=== PATIENT | female | born 1980 | race Caucasian/White ===

== ENCOUNTER 2020-04-05 14:23 | Outpatient (CLI) | payer BC, SELFPAY ==
--- NOTE | ~2020-04-05 | MM_ITS ---
EXAMINATION: MM scrn jonathan implant BI w patricia HISTORY: Screening mammogram TECHNIQUE: Craniocaudal and mediolateral oblique 3-D tomosynthesis images with implant displacement a nd synthetic 2-D images were generated. Craniocaudal and mediolateral oblique views of the breasts wi thout implant displacement were obtained using full field digital mammography. CAD analysis was submi tted and interpreted. COMPARISON: 03/29/2019, 10/07/2018, 04/05/2018 bilateral diagnostic digital mammogram examinations 03/29/2019, 10/07/2018 limited right breast ultrasound examinations 04/05/2018 bilateral Limited breast ultrasound examination. BREAST PARENCHYMAL COMPOSITION: There are scattered areas of fibroglandular density. FINDINGS: Status post bilateral augmentation mammoplasty. Occasional bilateral benign calcifications. There is no evidence of suspicious mass, calcification, or architectural distortion to suggest malig leora in either breast. There has been no suspicious interval change. IMPRESSION: 1. No mammographic evidence of malignancy. 2. Recommend routine screening mammography in one year. BI-RADS Category 2: Benign finding(s). Reviewed, dictated and finalized at location A.
== END 2020-04-05 14:24 | disposition home or self-care (01) ==
LOC: ANHIMG 14:28
PROVIDERS: PCP Family Medicine; Visit Provider Obstetrics & Gynecology
DX: Z12.31 Encounter for screening mammogram for malignant neoplasm of breast (principal)
CPT/HCPCS: 77063; 77067

== ENCOUNTER 2020-08-07 00:48 | Outpatient (CLI) | payer BC, SELFPAY ==
[2020-08-07 18:38] LABS: SARS-CoV-2 RNA PCR Negative
== END 2020-08-07 00:49 | disposition home or self-care (01) ==
LOC: ANHCOVIDDT 00:48
PROVIDERS: PCP Family Medicine; Visit Provider Obstetrics & Gynecology
DX: Z01.812 Encounter for preprocedural laboratory examination (principal); Z20.828 Contact with and (suspected) exposure to other viral communicable diseases
CPT/HCPCS: 87635; C9803; U0003

== ENCOUNTER 2020-08-07 06:59 | Outpatient (CLI) | payer BC, SELFPAY | END 2020-08-07 07:00 | disposition home or self-care (01) | PROVIDERS: PCP Family Medicine; Visit Provider Obstetrics & Gynecology | DX: R10.2 Pelvic and perineal pain (principal) | CPT/HCPCS: 36415; 86850; 86900; 86901 ==

== ENCOUNTER 2020-08-09 01:28 | Day surgery (SDC) | payer BC, SELFPAY ==
[2020-07-31 11:47] VITALS: BMI 27.3
--- NOTE | 2020-08-07 10:08 | PM.IMHP ---
H&P: HPI History of Present Illness Date/Time: 08/07/20 10:08 Chief complaint: Pelvic Pain Narrative: Fernanda Almeida is a 40 year old female 3 para 3 status post hysterectomy is admitted for diagnostic laparoscopy. She has had pain and discomfort. She has an ultrasound which shows a right adnexal structure of the small cystic component and a left ovary this larger with cystic structure and as well. She is offered diagnostic laparoscopy. Risks and benefits reviewed in full Review of Systems Review of Systems: All systems reviewed & are unremarkable except as noted in HPI and below PMFSH Social History Social History Smoking status: Never smoker Alcohol intake: current Drinks per week: 3 Spiritual care concerns: No Meds Home Medications and Allergies Home Medications Medication Instructions Recorded Confirmed Type clonazepam 0.5 mg PO HS 07/31/20 07/31/20 History pseudoephedrine HCl [Sudafed] 30 mg PO HS 07/31/20 07/31/20 History Allergies Allergy/AdvReac Type Severity Reaction Status Date / Time gluten Allergy CELIAC Verified 07/31/20 11:52 DISEASE Exam Const: General: no acute distress Eyes: General: appearance normal, both eyes and all related structures Neck: Neck: supple and no JVD Thyroid: thyroid normal Resp: Effort & Inspection: normal respiratory effort Auscultation: clear to auscultation bilaterally Cardio: Rate: regular rate Rhythm: regular rhythm GI: Inspection: non-distended GI Palp: Yes Soft to palpation, No Tenderness to palpation present (GI) and No Guarding due to palpation present (GI) Auscultation: normal bowel sounds : General: Yes bladder normal to inspection External Female Exam: normal external appearance Speculum Exam - Vagina: normal appearance of the vagina Speculum Exam - Cervix: Cervix absent Bimanual exam- vagina & uterus: uterus absent Bimanual Exam- Adnexa, other: tender Skin: General skin exam: no rashes or lesions noted Extrem: General: normal to inspection and no edema Psych: Mental Status: mental status grossly normal Affect: normal affect Assessment and Plan Additional Plan impression: Pelvic pain and bilateral ovarian cyst Plan: Diagnostic laparoscopy
[2020-08-09] VITALS (8 sets, daily range): BP systolic 105–134; BP diastolic 71–84; PULSE 68–115; RESP 13–20; TEMP 36.4–36.6; O2SAT 98–100
--- NOTE | 2020-08-09 06:43 | WPDHPUPDATE1 ---
History and Physical Update Update Date/Time: 08/09/20 06:43 History and Physical has been reviewed, including an updated exam of the patient. There are NO changes in the patient's condition. Risks, benefits, and alternatives have been discussed and questions answered. Patient agrees to proceed with procedure.
[2020-08-09] MEDS: KETOROLAC 15 MG/ML VIAL (*BKC) IV PUSH (08:19)
[2020-08-09] MEDS: ACETAMINOPHEN 500 MG TABLET 1000 MG PO (08:19)
[2020-08-09] MEDS: LACTATED RINGERS 1,000 ML 30 ML IV CONT ×2 (08:30→10:30)
--- NOTE | 2020-08-09 08:58 | WPDANESEPPF ---
Anes - Initial Pre Proc Eval Procedure: Operation Date: 08/09/20 10:00 Proposed Procedures p Diagnostic Laparoscopy - Tommy Walker MD Date/Time: 08/09/20 08:58 Surgeon: Tommy Walker MD Pre Op Diagnosis: Pelvic Pain Patient Data Age: 40 Gender: F Height: 5 ft 7 in Weight: 80.8 kg Last Vital Signs Temp 36.4 C 08/09/20 07:55 Pulse 79 08/09/20 07:55 Resp 20 08/09/20 07:55 BP 117/77 08/09/20 07:55 Pulse Ox 100 08/09/20 07:55 Allergies Allergy/AdvReac Type Severity Reaction Status Date / Time gluten Allergy CELIAC Verified 08/09/20 08:37 DISEASE Home Medications Medication Instructions Recorded Confirmed Type clonazepam 0.5 mg PO HS 07/31/20 07/31/20 History pseudoephedrine HCl [Sudafed] 30 mg PO HS 07/31/20 07/31/20 History hydrocodone-acetaminophen 1 tablet PO Q6H PRN #30 tablet 08/09/20 Rx Patient hx anesthesia problems: none Family hx anesthesia problems: none [facility] Past Medical History Medical History (Updated 08/09/20 @ 08:58 by Tommy Venegas MD) Overweight Surgical History Surgical History (Updated 08/09/20 @ 08:59 by Tommy Venegas MD) H/O laparoscopy H/O: hysterectomy Hx of tonsillectomy Social History Social History Smoking status: Never smoker Alcohol intake: current Drinks per week: 3 Spiritual care concerns: No Anes - Eval Final PreProcedure Day of Procedure 08/09/20 08:58 Patient weight: overweight Heart: regular rate and rhythm Lungs: clear to auscultation Airway: Mallampati scale class II Neurological: alert and oriented Last oral intake: >/= 8 hours ASA classification: II Emergent: no Anesthetic plan: proceed Anesthesia type and monitoring: general ETT and standard monitoring Informed Consent: The patient's anesthetic plan and its attendant risks and benefits were discussed with the patient/family/POA. Questions were solicited and answers provided to the satisfaction of the patient/family/POA.
--- NOTE | 2020-08-09 10:19 | PM.PROC ---
Procedure Note - Detailed Date of procedure: 08/09/20 Pre-op diagnosis: Pelvic Pain Surgeon: Tommy Walker MD Postop diagnosis: Pelvic pain /left ovarian cyst /adhesions Procedure: Laparoscopy / left ovarian cyst destruction /lysis of adhesions anesthesia: General endotracheal EBL: 5cc Complications: None Findings: Absent uterus and right ovary and tube. Left ovarian cyst with benign appearance. Adhesions from the colon to the left lateral sidewall Description of procedure: Patient was prepped draped in the normal sterile fashion and placed in the dorsal lithotomy position. Under excellent general grating anesthesia weighted speculum placed in posterior fornix vagina. The sponge stick was placed in bladder drained of clear urine. The speculum was removed and gloves were changed. An infraumbilical umbilical incision made in the Veress needle passed in the abdomen. Abdomen filled with CO2 gas [id number]. The 5mm trocar was advanced in the abdomen under direct visualization assuring no injury. The patient was placed in Trendelenburg and a suprapubic incision made. The 5mm trocar was advanced under direct visualization assuring no injury. The above findings were seen in photo documentation undertaken. The pelvis actually. Relatively clean. On the left was a benign-appearing ovarian cyst in this was opened with monopolar cautery at 35 w per 2nd and drained of clear follicular fluid. Adhesions were seen from the omentum to that left lateral side wall and using sharp dissection was Endo Lucia this was brought down freeing up these heavy or adhesions. No other abnormalities were seen. Irrigation was undertaken. The lower site removed. The gas removed from the abdomen. The incisions closed with 4 Monocryl and glue. All sponge, needle, instrument counts were correct. There were no immediate complications
[2020-08-09] MEDS: oxyCODONE HCL (*CRX) 5 MG TAB IR PO (12:09)
== END 2020-08-09 12:39 | disposition home or self-care (01) ==
PROVIDERS: PCP Family Medicine; Visit Provider Obstetrics & Gynecology
PROC: (CPT 49320; principal; 2020-08-09 10:00)
DX: R10.2 Pelvic and perineal pain (principal); N73.6 Female pelvic peritoneal adhesions (postinfective); N83.202 Unspecified ovarian cyst, left side
CPT/HCPCS: 58662; A9270; J0330; J1100; J1170; J1885; J2250; J2405; J2704; J3010; J7030; J7120; Q9968

== ENCOUNTER 2021-05-20 08:00 | Outpatient (CLI) | payer BC, SELFPAY ==
--- NOTE | ~2021-05-20 | MM_ITS ---
EXAMINATION: MM scrn jonathan implant BI w patricia HISTORY: Screening mammogram TECHNIQUE: Craniocaudal and mediolateral oblique 3-D tomosynthesis images with implant displacement a nd synthetic 2-D images were generated. Craniocaudal and mediolateral oblique views of the breasts wi thout implant displacement were obtained using full field digital mammography. CAD analysis was submi tted and interpreted. COMPARISON: 04/05/2020 bilateral implant digital screening mammogram 03/29/2019 bilateral diagnostic implant mammogram and limited right breast ultrasound 10/07/2018 diagnostic right implant mammogram 04/05/2018 bilateral diagnostic mammogram and Limited bilateral breast ultrasound 04/01/2018 bilateral implant digital screening mammogram BREAST PARENCHYMAL COMPOSITION: There are scattered areas of fibroglandular density. FINDINGS: Status post bilateral augmentation mammoplasty. Stable mild fibroglandular asymmetry. Occasional benign calcifications are noted bilaterally. There is no evidence of suspicious mass, calcification, or architectural distortion to suggest malign koko in either breast. There has been no suspicious interval change. IMPRESSION: 1. No mammographic evidence of malignancy. 2. Recommend routine screening mammography in one year. BI-RADS Category 2: Benign finding(s). Reviewed, dictated and finalized at location A.
== END 2021-05-20 08:01 | disposition home or self-care (01) ==
LOC: ANHIMG 08:02
PROVIDERS: PCP Family Medicine; Visit Provider Obstetrics & Gynecology
DX: Z12.31 Encounter for screening mammogram for malignant neoplasm of breast (principal)
CPT/HCPCS: 77063; 77067

== ENCOUNTER 2022-06-22 08:19 | Outpatient (CLI) | payer OTHER, BC, SELFPAY ==
--- NOTE | ~2022-06-22 | MM_ITS ---
EXAMINATION: MM scrn jonathan implant BI w patricia HISTORY: Screening mammogram TECHNIQUE: Craniocaudal and mediolateral oblique 3-D tomosynthesis images with implant displacement a nd synthetic 2-D images were generated. Craniocaudal and mediolateral oblique views of the breasts wi thout implant displacement were obtained using full field digital mammography. CAD analysis was submi tted and interpreted. COMPARISON: 05/20/2021, 04/05/2020 BREAST PARENCHYMAL COMPOSITION: There are scattered areas of fibroglandular density. FINDINGS: There is no evidence of suspicious mass, calcification, or architectural distortion to sugg est malignancy in either breast. There has been no suspicious interval change. IMPRESSION: 1. No mammographic evidence of malignancy. 2. Recommend routine screening mammography in one year. BI-RADS Category 1: Negative Reviewed, dictated and finalized at location A.
== END 2022-06-22 08:20 | disposition home or self-care (01) ==
LOC: ANHIMG 08:20
PROVIDERS: PCP Family Medicine; Visit Provider Obstetrics & Gynecology
DX: Z12.31 Encounter for screening mammogram for malignant neoplasm of breast (principal)
CPT/HCPCS: 77063; 77067

== ENCOUNTER 2022-12-03 09:03 | Outpatient (CLI) | payer OTHER, BC, SELFPAY ==
--- NOTE | 2022-12-03 09:00 | ECG_ITS ---
Measurements Intervals [place] Rate: 71 P: 62 ID: [id number] QRS: 62 QRSD: 81 T: 56 QT: 378 QTc: 413 Interpretive Statements SINUS RHYTHM LOW QRS VOLTAGE IN PRECORDIAL LEADS [QRS DEFLECTION < 1.0 mV IN CHEST LEADS] WARNING: DATA QUALITY MAY AFFECT INTERPRETATION NO PREVIOUS ECG AVAILABLE FOR COMPARISON Electronically Signed On 12-03-2022 15:40:00 [employer] by Zahra Butcher M.D.
[2022-12-03 09:49] LABS: Hematocrit 42.1 % (37.0-47.0); Hemoglobin 14.6 g/dL (12.0-15.0)
== END 2022-12-03 09:04 | disposition home or self-care (01) ==
LOC: ANHSURGERY 09:09
PROVIDERS: Anesthesiology; PCP Family Medicine; Visit Provider Surgery Plastic and Reconstructive Surgery
DX: Z41.1 Encounter for cosmetic surgery (principal); Z01.818 Encounter for other preprocedural examination
CPT/HCPCS: 36415; 85014; 85018; 93005

== ENCOUNTER 2022-12-15 00:33 | Day surgery (SDC) | payer OTHER, BC, SELFPAY ==
[2022-12-01 15:15] VITALS: BMI 23.5
--- NOTE | 2022-12-01 15:19 | PC.NURSE ---
Addendum entered by Cecy Garcia RN 12/01/22 15:26: HIBICLENS SHOWER MORNING OF SURGERY. Original Note: Report to the Outpatient Waiting Room, entrance under the green pavilion located off [facility], at time 8:30 on date 12/15/22. Planned Procedure Time: 10:30. Time changes happen often and if your time is changed the preop area will call you the afternoon before. - You and your visitor will be asked to self-screen and do not enter if you have any COVID symptoms. - Only one visitor is requested with a max of two and NO children visitors are allowed at this time. - The patient visitor may be requested to leave or wait in car when not with patient due to distancing restrictions. - A mask is optional within the hospital at this time. Patients may have clear liquids (water, carbonated beverages, clear teas, apple juice) until 3 hours prior to surgery with a maximum of 20 ounces. - No food from midnight until time of surgery Take the following medications with a SIP of water the morning of surgery: XANAX IF NEEDED DO NOT STOP ANY OF YOUR OTHER PRESCRIPTION MEDICATIONS PRIOR TO SURGERY EXCEPT THE FOLLOWING Medications to discontinue per physician: N/A Date to take last dose: N/A Please no make-up, nail ku[place]i, hairspray, perfume, deodorant, or body powder the day of surgery. No jewelry (including any body piercings) or valuables the day of surgery, leave them at home. Please take a shower or bath the night before, or the morning of, surgery with an antibacterial soap. Wear comfortable, loose fitting clothing. - Jewelry must be removed prior to entering the operating room. Rings and piercings that are not removed may be cut off. - The hospital will not accept responsibility for valuables. - Please leave all valuables, including medications, at home the day of surgery. If you are going home after surgery, a licensed school bus driver/custodian must drive you home. - NO public transportation without another adult if you receive anesthesia. - We recommend that an adult stay with you for 24 hours following discharge. - We also recommend that you do not drive, make important decision, drink alcoholic beverages, or take any drugs that were not prescribed by your health care provider for at least 24 hours after your discharge time. Follow any additional instructions given to you from your surgeon. If you or anyone in your household have experienced Covid symptoms in the past week, please notify your surgeon or the nurse liaison at the phone number below for possible testing. Telephone instructions given to JANIYA - LETY SANCHEZ and asked if any additional questions and then verbalized understanding. Patient advised to call surgeon office or pre surgery nurse liaison [phone] if any additional questions.
[2022-12-15] VITALS (11 sets, daily range): BP systolic 91–123; BP diastolic 60–88; PULSE 77–103; RESP 12–18; TEMP 36.4–37.1; O2SAT 97–100; BMI 23.1
[2022-12-15] MEDS: LACTATED RINGERS 1,000 ML 30 ML IV CONT ×2 (09:05→14:03)
[2022-12-15 09:09] LABS: Urine Cotinine NEGATIVE
[2022-12-15] MEDS: ACETAMINOPHEN 500 MG TABLET 1000 MG PO (09:09)
--- NOTE | 2022-12-15 09:18 | WPDANESEPPF ---
Anes - Initial Pre Proc Eval Procedure: Operation Date: 12/15/22 10:30 Proposed Procedures p Abdominoplasty with Liposuction - Jerry Luo MD s Open Umbilical Hernia Repair - Heber Cohen DO Date/Time: 12/15/22 09:18 Surgeon: Jerry Luo MD Pre Op Diagnosis: Skin Laxity, Umbilical Hernia Patient Data Age: 42 Gender: F Height: 1.7 m Weight: 68.1 kg Allergies Allergy/AdvReac Type Severity Reaction Status Date / Time gluten Allergy CELIAC Verified 12/15/22 08:55 DISEASE Home Medications Medication Instructions Recorded Confirmed Type spironolactone 50 mg tablet 50 mg PO DAILY 09/03/22 12/01/22 History alprazolam 0.5 mg tablet 0.5 mg PO BID PRN Anxiety 12/01/22 12/01/22 History linaclotide 72 mcg capsule 72 mcg PO DAILY 12/01/22 12/01/22 History (Linzess) pseudoephedrine HCl 30 mg tablet 30 mg PO HS PRN Congestion 12/01/22 12/01/22 History (Sudafed) Laboratory Tests 12/15/22 08:53 Cotinine Negative Patient hx anesthesia problems: none Family hx anesthesia problems: none Results Review: All pre-operative results and documents have been reviewed as part of the pre-operative evaluation. [facility] Past Medical History Medical History (Updated 12/15/22 @ 09:18 by Tommy Venegas MD) Celiac disease Surgical History Surgical History H/O laparoscopy H/O: hysterectomy Hx of tonsillectomy S/P breast augmentation S/P Family History Family History Father Lung cancer Other Cerebrovascular accident Cancer Social History Social History Smoking status: Never smoker Alcohol intake: current Drinks per week: 3 Alcohol use details: 2/MONTH Substance use: never Substance use type: does not use Living arrangements: with family Spiritual care concerns: No Anes - Eval Final PreProcedure Day of Procedure 12/15/22 09:18 Patient weight: normal Heart: regular rate and rhythm Lungs: clear to auscultation Airway: Mallampati scale class II Neurological: alert and oriented Last oral intake: >/= 8 hours ASA classification: II Emergent: no Anesthetic plan: proceed Anesthesia type and monitoring: general ETT and standard monitoring Results Review: All pre-operative results and documents have been reviewed as part of the pre-operative evaluation. Informed Consent: The patient's anesthetic plan and its attendant risks and benefits were discussed with the patient/family/POA. Questions were solicited and answers provided to the satisfaction of the patient/family/POA.
[2022-12-15] MEDS: SCOPOLAMINE 1.5 MG PATCH TRANSDERM (09:34)
[2022-12-15] MEDS: KETOROLAC 15 MG/ML VIAL (*BKC) IV PUSH ×2 (09:39→15:45)
--- NOTE | 2022-12-15 09:40 | WPDHPUPDATE1 ---
History and Physical Update Update Date/Time: 12/15/22 09:40 History and Physical has been reviewed, including an updated exam of the patient. There are NO changes in the patient's condition. Risks, benefits, and alternatives have been discussed and questions answered. Patient agrees to proceed with procedure.
--- NOTE | 2022-12-15 09:59 | W.PM.PROC2 ---
Procedure Note - Detailed Date of Procedure 12/15/22 Pre-op Diagnosis Skin Laxity, Umbilical Hernia Post-op Diagnosis Same Procedure Performed Progressive tension abdominoplasty with suction lipectomy Surgeon Jerry Luo MD Anesthesia General Findings Tissue removed: 905 grams Lipoaspirate: 850 cc Description of Procedure They are here today for abdominoplasty. Previously and again today the risks, benefits, alternatives were discussed in extensive detail. I wanted them to be very realistic about the risks involved as well as expectations. We discussed aftercare and what to monitor for. I was very upfront about the risks of wound breakdown leading to loss of skin, open wounds, and need for additional procedures with permanent abdominal deformity. We discussed DVT/PE risks and management. Made sure answered all of their questions to their satisfaction today and consent was obtained. They were marked in the preoperative holding area with their verification. The patient was taken to the operating room placed supine on the operating table. Anesthesia was provided by anesthesiology. A Harvey catheter was started. They were prepped and draped in a standard sterile fashion. A surgical time-out was taken. I placed the patient in a flexed position to verify the upper and lower markings would reach. I then placed supine. A thorough abdominal examination was completed. Stab incisions were made and tumescent solution infiltrated. Once adequate time was allowed for hemostasis a 5mm basket and 3mm gege cannula were utilized to complete suction lipectomy based on S.A.F.E. technique in multiple planes and passes. There were turned to bilateral lateral decubitus position with care taken to protect them for injury during this process. Suction lipectomy continued to result based on pre-operative planning, intra-operative observation, and rolling pinch test which were in full agreement. A 10 blade was used to make the upper incision. I continued dissection down to the level of fascia. Elevated just what was necessary for repair of the diastasis. I then again flexed the bed to verify the upper skin flap would reach the lower markings without tension. Once verified I placed her supine once again and a 10 blade used to make the lower incision. I elevated up to level the umbilicus and left the umbilicus intact on a well-vascularized stalk. The intervening tissue was removed. A 2 mm blunt cannula with 0.5% bupivicaine was injected deep to the fascia bilaterally. I plicated the diastasis recti using 0 PDO stratafix barbed suture. This was in 2 separate layers using 2 separate sutures as well. I repaired around the umbilicus leaving plenty of room for well-vascularized stalk of the umbilicus with 2-0 PDS. I also repaired lateral to the rectus using two layers of 0 PDO stratafix. The patient was flexed and starting from superior to inferior began plication using 2-0 Vicryl to obliterate all space in a standard progressive tension fashion. At the umbilicus I marked out the location of the skin and inset this with 3-0 Monocryl and 4-0 Vicryl. I continued the remainder of the plication using 2-0 Vicryl until I reached my lower planned scar line. I trimmed any excess skin of the upper flap making sure this was a tension-free closure. I then approximated using a 3 point suture with 2-0 Vicryl followed by 3-0 stratafix ,running subcuticular 4-0 Monocryl, and tissue glue. Fluffs and an abdominal binder were placed. The patient was transferred to the bed in a flexed position. Awoken and taken to the PACU without difficulty. All instrument and sponge counts were correct at the end of the case. Estimated Blood Loss 75 Drains No Packing No Pathology None sent Complications No immediate complications Condition Stable Disposition PACU
--- NOTE | 2022-12-15 10:19 | PM.IMHP ---
H&P: HPI History of Present Illness Date/Time: 12/15/22 10:20 Chief Complaint: Umbilical hernia Narrative: Fernanda is a 42 y/o female who presents for scheduled umbilical hernia repair after being seen in the office by Dr. Cohen on 09/07/22. This is a combination case with Dr. Luo for an abdominoplasty. She noticed a small bulging right above her umbilicus. She is able to reduce it when laying down. She has a surgical history of laparoscopy for ovarian cysts and endometriosis. No changes since her last office visit. Still wishes to proceed with surgery. Review of Systems Review of Systems: All systems reviewed & are unremarkable except as noted in HPI and below Constitutional: Constitutional: Reports no additional constitutional complaints and Denies fatigue Eyes: Eyes: Reports no additional eye complaints ENT: Reports system reviewed and no additional complaints, except as documented Cardiovascular: Cardiovascular: Reports no additional cardiovascular complaints, Denies chest pain and Denies leg edema Respiratory: Respiratory: Reports no additional respiratory complaints, Denies cough and Denies dyspnea Gastrointestinal: Gastrointestinal: Reports as per HPI and Reports no additional gastrointestinal complaints Musculoskeletal: Musculoskeletal: Reports no additional musculoskeletal complaints and Denies joint swelling Integumentary/Breasts: Skin/Breast: Reports system reviewed and no additional complaints, except as docu Neurologic: Reports system reviewed and no additional complaints, except as documented, Denies focal weakness, Denies numbness and Denies tingling PMFSH Past Medical History Medical History Celiac disease Surgical History Surgical History H/O laparoscopy H/O: hysterectomy Hx of tonsillectomy S/P breast augmentation S/P Family History Family History Father Lung cancer Other Cerebrovascular accident Cancer Social History Social History Smoking status: Never smoker Alcohol intake: current Drinks per week: 3 Alcohol use details: 2/MONTH Substance use: never Substance use type: does not use Living arrangements: with family Spiritual care concerns: No Meds Home Medications and Allergies Home Medications Medication Instructions Recorded Confirmed Type spironolactone 50 mg tablet 50 mg PO DAILY 09/03/22 12/01/22 History alprazolam 0.5 mg tablet 0.5 mg PO BID PRN Anxiety 12/01/22 12/01/22 History linaclotide 72 mcg capsule 72 mcg PO DAILY 12/01/22 12/01/22 History (Linzess) pseudoephedrine HCl 30 mg tablet 30 mg PO HS PRN Congestion 12/01/22 12/01/22 History (Sudafed) Allergies Allergy/AdvReac Type Severity Reaction Status Date / Time gluten Allergy CELIAC Verified 12/15/22 08:55 DISEASE Exam Const: General: comfortable, no acute distress and awake Nutritional Appearance: average body habitus Orientation/consciousness: patient oriented x3 HENMT: Head: normocephalic and atraumatic Ears: hearing grossly normal bilaterally Mouth: Yes moist mucous membranes Eyes: General: appearance normal, both eyes and all related structures Pupils: Equal, round and reactive pupils present Neck: Neck: normal visual inspection and full ROM Resp: Effort & Inspection: no respiratory distress Auscultation: clear to auscultation bilaterally Cardio: Rate: regular rate Rhythm: regular rhythm Heart sounds: S1 normal heart sound present and S2 normal heart sound present GI: Inspection: non-distended GI Palp: Yes Soft to palpation, No Tenderness to palpation present (GI), No Guarding due to palpation present (GI), Yes Hernia present (5-10 mm umbilical hernia with slight protrusion just sup. to umbilicus), No Rebound tendernes
--- NOTE | 2022-12-15 10:30 | WPDHPUPDATE1 ---
History and Physical Update Update Date/Time: 12/15/22 10:30 History and Physical has been reviewed, including an updated exam of the patient. There are NO changes in the patient's condition. Risks, benefits, and alternatives have been discussed and questions answered. Patient agrees to proceed with procedure.
[2022-12-15] MEDS: TRANEXAMIC ACID 1,000MG/ISO100 1,000 MG/100 ML BAG 200 MG IVPB (10:34)
[2022-12-15] MEDS: ceFAZolin 2 GM/D5W 50 ML 2 GM/50 ML BAG IVPB (10:55)
[2022-12-15] MEDS: LACTATED RINGERS IRRIG 1,000 ML, LIDOCAINE HCL 1% LOCAL INJ 50 ML, EPINEPHrine HCL INJ ... INFILTRATE ×2 (12:00)
[2022-12-15] MEDS: LIDO 1%/EPINEPHRINE 1:100,000 20 ML VIAL 30 ML INFILTRATE (12:14)
[2022-12-15] MEDS: BUPivacaine HCL 0.25% PF 30 ML VIAL INFILTRATE (12:15)
--- NOTE | 2022-12-15 13:01 | P.OP_ITS ---
Procedure Note - Detailed Date of Procedure 12/15/22 Pre-op Diagnosis Skin Laxity, Umbilical Hernia Post-op Diagnosis Same Procedure Performed 0.5 cm Umbilical hernia repair Surgeon Heber Cohen, DO Anesthesia General Findings A 0.5 cm umbilical hernia was identified. This was repaired primarily using E thibond simple interrupted sutures. No specimens were obtained for pathology from my procedure. Description of Procedure Procedure as well as risks, benefits, and alternatives were discussed with the patient. Written consent was obtained and placed in chart prior to procedure. Patient was brought back to surgical suite. Time-out was done to confirm patient and procedure. She was then intubated by the anesthesia department. Her abdomen was prepped and draped in sterile fashion using chlorhexidine prep. Please refer to Dr. Luo's operative note for details of his procedure. Once the skin laxity had been excised and the umbilicus was exposed, I was then called in to perform the umbilical hernia repair. I carefully inspected the um bilicus and the surrounding fascia. A 1 cm incision was made in the linea alba but just inferior to the umbilicus using electrocautery. The preperitoneal fat was then cleared around the hernia defect. The hernia sac was reduced along with the preperitoneal fat. The hernia defect measured 0.5 cm. I then closed the hernia defect using 0 Ethibond simple interrupted sutures. The sutures were placed from the underside of the fascia to approximate the fascial edges and close the hernia defect. I then closed the incision on the linea alba just inferior to the umbilicus using 0 Ethibond [id number] sutures. Dr. Luo was then called back in to complete his portion of the procedure. Estimated Blood Loss 75 Complications No immediate complications Condition Stable Disposition Observation [facility] Billing Surgery - Charge Forward: Surgery Billing
[2022-12-15] MEDS: LACTATED RINGERS 1,000 ML 125 ML IV CONT (15:45)
[2022-12-15] MEDS: carisoprodoL (*CRX) 350 MG TABLET PO ×2 (17:54→23:40)
[2022-12-15] MEDS: MORPHINE SULFATE (*CRX) 2 MG/ML INJ IV PUSH ×2 (18:15→23:40)
[2022-12-15] MEDS: ONDANSETRON INJ 4 MG/2 ML VIAL IV PUSH (18:15)
[2022-12-15] MEDS: oxyCODONE/ACETAMINOPHEN (*CRX) 5-325 MG TABLET PO (19:24)
[2022-12-15] MEDS: diazePAM (*CRX) 5 MG TABLET PO (19:24)
[2022-12-15] MEDS: SIMETHICONE 80 MG TAB.CHEW PO (19:26)
[2022-12-15] MEDS: DOCUSATE SODIUM 100 MG CAPSULE PO (19:32)
[2022-12-15] MEDS: ENOXAPARIN 40 MG/0.4 ML SYRINGE SUB-Q (19:32)
[2022-12-16] MEDS: SIMETHICONE 80 MG TAB.CHEW PO ×2 (00:35→03:53)
[2022-12-16] MEDS: oxyCODONE/ACETAMINOPHEN (*CRX) 5-325 MG TABLET PO ×3 (03:55→14:00)
[2022-12-16 04:00] VITALS: BP 98/67; PULSE 79; RESP 17; TEMP 36.6; O2SAT 98
[2022-12-16] MEDS: carisoprodoL (*CRX) 350 MG TABLET PO ×2 (05:39→11:55)
--- NOTE | 2022-12-16 06:56 | WPDPN ---
Progress Note: A&P Assessment and Plan (1) Skin laxity: Code(s): L57.4 - Cutis laxa senilis Status: Acute Assessment and Plan: Doing well. Will plan for discharge home. Follow-up 1 week. Today we had a lengthy discussion about the care. What to monitor for. What is an emergency and when to dial 911 / proceed to the ER. Call with all other questions. This was a lengthy open ended conversation answering all her questions and she voiced a clear understanding. (2) Localized adiposity: Code(s): E65 - Localized adiposity Status: Acute (3) Umbilical hernia without mention of obstruction or gangrene: Code(s): K42.9 - Umbilical hernia without obstruction or gangrene Status: Acute Assessment and Plan: Per Dr. Cohen Subjective Date/time seen: 12/16/22 06:56 Interval history: Doing well after progressive tension abdominoplasty with suction lipectomy. Also umbilical hernia repair with Dr. Cohen Pain controlled. No n/v. No f/c. No SOB. No CP. No calf tenderness. Review of Systems Review of Systems: All systems reviewed & are unremarkable except as noted in HPI and below Exam Narrative: A&O NOD Resp unlabored Abdomen soft. No signs of infection. No hematoma. No seroma. Good color / cap refill. No calf tenderness. Negative Homann's. Objective Data Vital Signs Vital Signs: Vital Signs - 24 hr 12/15/22 08:30 12/15/22 14:03 12/15/22 14:30 Temperature 36.4 C 37.1 C Pulse Rate 81 103 H 84 Respiratory Rate 16 12 16 Blood Pressure 110/88 91/60 L 117/75 Pulse Oximetry 100 100 100 Oxygen Delivery Room Air Simple Face Mask Room Air Oxygen Flow Rate 6 12/15/22 14:45 12/15/22 14:55 12/15/22 14:15 Temperature 37.0 C Pulse Rate 92 77 93 Respiratory Rate 18 14 16 Blood Pressure 117/78 123/80 113/66 Pulse Oximetry 97 97 100 Oxygen Delivery Room Air Room Air Simple Face Mask Oxygen Flow Rate 6 12/15/22 15:07 12/15/22 15:15 12/15/22 19:12 Temperature 36.6 C 37.1 C Pulse Rate 79 79 93 Respiratory Rate 16 16 17 Blood Pressure 108/74 102/72 Pulse Oximetry 97 97 98 Oxygen Delivery Room Air Oxygen Flow Rate 12/15/22 21:30 12/15/22 23:45 12/16/22 04:00 Temperature 36.8 C 36.6 C Pulse Rate 78 79 Respiratory Rate 14 17 Blood Pressure 98/60 L 92/62 L 98/67 L Pulse Oximetry 98 98 Oxygen Delivery Oxygen Flow Rate Intake/Output Intake/Output: Intake & Output 12/13/22 12/14/22 12/15/22 12/16/22 23:59 23:59 23:59 23:59 Intake Total 2100 600 Output Total 1275 200 Balance 825 400 Meds/Results Medications: Active Medications Generic Name Dose Route Start Last Admin Trade Name Freq PRN Reason Stop Dose Admin Carisoprodol 350 mg 12/15/22 18:00 12/16/22 05:39 Carisoprodol (*Crx) 350 Mg Tablet PO 350 mg Q6HR YUSUF Administration Diazepam 5 mg 12/15/22 13:50 12/15/22 19:24 Diazepam (*Crx) 5 Mg Tablet PO 5 mg TID PRN Administration Anxiety Docusate Sodium 100 mg 12/15/22 21:00 12/15/22 19:32 Docusate Sodium 100 Mg Capsule PO 100 mg Q12HR YUSUF Administration Enoxaparin Sodium 40 mg 12/15/22 20:00 12/15/22 19:32 Enoxaparin 40 Mg/0.4 Ml Syringe SUB-Q 40 mg DAILY@2000 YUSUF Administration Lactated Ringer's 1,000 mls @ 125 mls/hr 12/15/22 13:50 12/16/22 00:21 Lr - Lactated Ringers Iv IV CONT Not Given .Q8H [facility] Ketorolac Tromethamine 15 mg 12/15/22 13:50 12/15/22 15:45 Ketorolac 15 Mg/Ml Vial (*Bkc) IV PUSH 15 mg Q6H PRN Administration Pain Rated 4-6 Miscellaneous Information 0 each 12/15/22 00:01 Linaclotide 72 Mcg Is Nonformulary - Can Patient Bring From Home? XX 01/14/23 00:00 CLARIFY [facility] Morphine Sulfate 2 mg 12/15/22 13:50 12/15/22 23:40 Morphine Sulfate (*Crx) 2 Mg/Ml Inj IV PUSH 2 mg Q2H PRN Administration Pain Non-Formulary Medication 72 mcg 12/16/22 09:00 Linaclotide [Linzess] PO 01/15/23 08:59
--- NOTE | 2022-12-16 07:01 | P.DS_ITS ---
DS: Admitting Diagnosis Discharge Date 12/16/2022 Admitting Diagnosis 1. Skin laxity 2. Localized adiposity 3. Umbilical hernia DS: Discharge Diagnosis Discharge Diagnosis (1) Skin laxity: Code(s): L57.4 - Cutis laxa senilis Status: Acute (2) Localized adiposity: Code(s): E65 - Localized adiposity Status: Acute (3) Umbilical hernia without mention of obstruction or gangrene: Code(s): K42.9 - Umbilical hernia without obstruction or gangrene Status: Acute DS: Summary Hospital Course Hospital Course: Underwent progressive tension abdominoplasty and suction lipectomy. Also umbilical hernia repair with Dr. Cohen. Has done very well. Will discharge home. Follow-up. Time Spent with Patient Time attestation: Total time spent providing and/or coordinating discharge services: Exam Narrative: A&O NOD Resp unlabored Abdomen soft. No signs of infection. No hematoma. No seroma. Good color / cap refill. No calf tenderness. Negative Homann's. DS: Data Data Completed and Pending Labs on day of discharge: Labs from last 24 hours 12/15/22 08:53 Cotinine Negative Discharge Plan Discharge Patient Disposition: Home, Self-Care Discharge Instructions: POST OPERATIVE DISCHARGE INSTRUCTIONS JERRY LUO M.D. [facility] [address] [place] [address] * No driving for 24 hours after anesthesia and while you are taking pain medication. * Take all prescribed medication as directed * Diet as tolerated. * No lifting or activity that raises blood pressure for 48 hours. * Regular walking / ambulation. * May shower 24 hours after surgery. Once you shower do not take pain medication before showering as the combination of medication and heat may cause you to feel dizzy or pass out. * No pools or tubs for 2 weeks. * Slowly stand up straight as tolerated. * No straining or lifting more than 20 pounds. * If no bowel movement within 24 hours may use laxative. * Call with any questions or concerns. * Dressing Care: Continue abdominal binder / foam 23 hours per day. * Remove the Scopolamine patch that was placed behind your ear in 72 hours or less. Wash your hands after touching. If you have any questions or concerns, please call the office . If it is after hours you will be directed to the restoration technician exchange. Shortness of breath, chest pain, or other medical emergency dial 911 / proceed to the Emergency Room. Stand Alone Forms: General Discharge Instructions Follow-up/Referrals: Jerry Luo MD [Physician] - 1 Week Discharge Medications: Continued spironolactone 50 mg tablet 50 mg PO DAILY alprazolam 0.5 mg tablet 0.5 mg PO BID PRN (Reason: Anxiety) pseudoephedrine HCl [Sudafed] 30 mg Tablet 30 mg PO HS PRN (Reason: Congestion) Rx Instructions: DNExceed 4 doses/24h Linzess 72 mcg Capsule 72 mcg PO DAILY
[2022-12-16 07:45] VITALS: BP 98/59; PULSE 88; RESP 16; TEMP 36.9; O2SAT 98
[2022-12-16] MEDS: DOCUSATE SODIUM 100 MG CAPSULE PO (08:10)
[2022-12-16 10:45] VITALS: PULSE 88; RESP 16; O2SAT 98
[2022-12-16] MEDS: ONDANSETRON INJ 4 MG/2 ML VIAL IV PUSH (11:55)
[2022-12-16] MEDS: KETOROLAC 15 MG/ML VIAL (*BKC) IV PUSH (11:55)
--- NOTE | 2022-12-16 14:18 | WPDANESPN ---
Anes - Prog Note Post-Op Date/Time: 12/16/22 14:18 Vital Signs: Last Vital Signs Temp 36.9 C 12/16/22 07:45 Pulse 88 12/16/22 10:45 Resp 16 12/16/22 10:45 BP 98/59 L 12/16/22 07:45 Pulse Ox 98 12/16/22 10:45 O2 Del Method Room Air 12/16/22 10:45 O2 Flow Rate 6 12/15/22 14:15 Pain Score (VAS): 2 I/O: Intake & Output 12/15/22 12/16/22 12/16/22 23:59 07:59 15:59 Intake Total 2138 781 9760 Output Total 1100 200 250 Balance 700 400 750 Patient Feedback: Patient satisfied with anesthetic care.
== END 2022-12-16 14:10 | disposition home or self-care (01) ==
LOC: ANHSURGERY 09:38 → ANHOB2 14:45
PROVIDERS: Surgery; PCP Family Medicine; Visit Provider Surgery Plastic and Reconstructive Surgery
PROC: (CPT 15830; principal; 2022-12-15 10:30)
PROC: (CPT 49591; 2022-12-15 10:30)
DX: Z41.1 Encounter for cosmetic surgery (principal); K42.9 Umbilical hernia without obstruction or gangrene; L57.4 Cutis laxa senilis; E65 Localized adiposity; K90.0 Celiac disease; Z87.891 Personal history of nicotine dependence
CPT/HCPCS: 49591; 15830; 15847; 15877; 80307; 99199; A9270; J0171; J0690; J1100; J1170; J1650; J1885; J2250; J2270; J2370; J2405; J2704; J2710; J3010; J7120

== ENCOUNTER 2023-09-21 07:50 | Outpatient (CLI) | payer BC, SELFPAY ==
--- NOTE | ~2023-09-21 | MM_ITS ---
EXAMINATION: MM scrn jonathan implant BI w patricia HISTORY: Screening mammogram TECHNIQUE: Craniocaudal and mediolateral oblique 3-D tomosynthesis images with implant displacement a nd synthetic 2-D images were generated. Craniocaudal and mediolateral oblique views of the breasts wi thout implant displacement were obtained using full field digital mammography. CAD analysis was submi tted and interpreted. COMPARISON: 06/22/2022, 05/20/2021, 04/05/2020 bilateral implant screening mammogram examinations BREAST PARENCHYMAL COMPOSITION: The breasts are heterogeneously dense, which may obscure small masses . FINDINGS: Status post bilateral augmentation mammoplasty. There is no evidence of suspicious mass, ca lcification, or architectural distortion to suggest malignancy in either breast. There has been no wagner spicious interval change. IMPRESSION: 1. No mammographic evidence of malignancy. 2. Recommend routine screening mammography in one year. BI-RADS Category 1: Negative Reviewed, dictated and finalized at location A. [employer]
== END 2023-09-21 07:51 | disposition home or self-care (01) ==
PROVIDERS: Visit Provider Obstetrics & Gynecology
DX: Z12.31 Encounter for screening mammogram for malignant neoplasm of breast (principal)
CPT/HCPCS: 77063; 77067

== ENCOUNTER 2023-10-20 08:33 | Outpatient (CLI) | payer BC, SELFPAY | END 2023-10-20 08:34 | disposition home or self-care (01) | LOC: ANHSURGERY 08:41 | PROVIDERS: Visit Provider Obstetrics & Gynecology | DX: N83.209 Unspecified ovarian cyst, unspecified side (principal); Z01.818 Encounter for other preprocedural examination | CPT/HCPCS: 36415; 86850; 86900; 86901 ==

== ENCOUNTER 2023-10-22 04:14 | Day surgery (SDC) | payer BC, SELFPAY ==
[2023-10-14 15:19] VITALS: BMI 23.5
--- NOTE | 2023-10-14 15:22 | PC.NURSE ---
Report to the Outpatient Waiting Room, entrance under the green pavilion located off [facility], at time 11:30 on date 10/22/23. Planned Procedure Time: 1:30. Time changes happen often and if your time is changed the preop area will call you the afternoon before. - You and your visitor will be asked to self-screen and do not enter if you have any COVID symptoms. - A mask is optional within the hospital at this time. Patients may have clear liquids (water, carbonated beverages, clear teas, apple juice) until 3 hours prior to surgery (10:30) with a maximum of 20 ounces. - No food from midnight until time of surgery Take the following medications with a SIP of water the morning of surgery: ALPRAZOLAM IF NEEDED DO NOT STOP ANY OF YOUR OTHER PRESCRIPTION MEDICATIONS PRIOR TO SURGERY ?EXCEPT THE FOLLOWING Medications to discontinue per physician: N/A Date to take last dose: N/A Please no make-up, nail kyrgyz, hairspray, perfume, deodorant, or body powder the day of surgery. No jewelry (including any body piercings) or valuables the day of surgery, leave them at home. Please take a shower or bath the night before, or the morning of, surgery with an antibacterial soap. Wear comfortable, loose fitting clothing. - Jewelry must be removed prior to entering the operating room. Rings and piercings that are not removed may be cut off. - The hospital will not accept responsibility for valuables. - Please leave all valuables, including medications, at home the day of surgery. If you are going home after surgery, a licensed tractor driver must drive you home. - NO public transportation without another adult if you receive anesthesia. - We recommend that an adult stay with you for 24 hours following discharge. - We also recommend that you do not drive, make important decision, drink alcoholic beverages, or take any drugs that were not prescribed by your health care provider for at least 24 hours after your discharge time. Follow any additional instructions given to you from your surgeon. If you or anyone in your household have experienced Covid symptoms in the past week, please notify your surgeon or the nurse liaison at the phone number below for possible testing. Telephone instructions given to PT - LETY SANCHEZ and asked if any additional questions and then verbalized understanding. Patient advised to call surgeon office or pre surgery nurse liaison [phone] if any additional questions.
--- NOTE | 2023-10-19 12:37 | PM.IMHP ---
H&P: HPI History of Present Illness Date/Time: 10/19/23 12:37 Chief Complaint: Pelvic pain and complex left ovarian cyst Narrative: 43-year-old female status post hysterectomy the left complex ovarian cyst. She is being sparing pain discomfort. Ultrasound shows a complex ovarian cyst as well as a simple cyst. The right ovary is surgically absent. She will undergo laparoscopy with left cystectomy and possible left oophorectomy. Risks and benefits reviewed in great detail including but not exclusive , aspiration pneumonia, bleeding, transfusion perforation injury to bowel, bladder, ureters, or other internal organs with the need for open laparotomy repair. She received the [employer] handout entitled laparoscopy. She had all questions answered to her satisfaction. She asked to proceed PMFSH Past Medical History Medical History Celiac disease Surgical History Surgical History H/O laparoscopy H/O umbilical hernia repair 12/15/22 0.5 cm Umbilical hernia repair H/O: hysterectomy Hx of tonsillectomy S/P breast augmentation S/P Family History Family History Father Lung cancer Other Cerebrovascular accident Cancer Social History Social History Smoking status: Never smoker Alcohol intake: current Drinks per week: 3 Alcohol use details: 4/MONTH Substance use: never Substance use type: does not use Living arrangements: with family Additional living arrangements comments: CHILDREN Spiritual care concerns: No Meds Home Medications and Allergies Home Medications Medication Instructions Recorded Confirmed Type spironolactone 50 mg tablet 100 mg PO DAILY 09/03/22 10/14/23 History alprazolam 0.5 mg tablet 0.5 mg PO BID PRN Anxiety 12/01/22 10/14/23 History linaclotide 72 mcg capsule 72 mcg PO PRN PRN Abdominal 12/01/22 10/14/23 History (Linzess) Discomfort pseudoephedrine HCl 30 mg tablet 30 mg PO HS PRN Congestion 12/01/22 10/14/23 History (Sudafed) Allergies Allergy/AdvReac Type Severity Reaction Status Date / Time gluten Allergy CELIAC Verified 10/14/23 15:18 DISEASE Exam Const: General: cooperative, healthy appearing, comfortable and average body habitus Orientation/consciousness: oriented to person, oriented to place and oriented to time HENMT: Head: normal to inspection Resp: Effort & Inspection: normal respiratory effort Cardio: Rate: regular rate Rhythm: regular rhythm Heart sounds: S1 normal heart sound present and S2 normal heart sound present GI: Inspection: normal to inspection : External Female Exam: normal external appearance Speculum Exam - Vagina: normal appearance of the vagina Speculum Exam - Cervix: Cervix absent Bimanual exam- vagina & uterus: uterus absent Bimanual Exam- Adnexa, other: tender on the left Assessment and Plan Assessment and plan (1) Left ovarian cyst: Code(s): N83.202 - Unspecified ovarian cyst, left side Status: Acute Plan Laparoscopic left ovarian cystectomy with unlikely oophorectomy
[2023-10-22] VITALS (8 sets, daily range): BP systolic 101–125; BP diastolic 60–80; PULSE 72–91; RESP 14–16; TEMP 36.3–37.2; O2SAT 100
--- NOTE | 2023-10-22 06:07 | WPDHPUPDATE1 ---
History and Physical Update Update Date/Time: 10/22/23 06:07 History and Physical has been reviewed, including an updated exam of the patient. There are NO changes in the patient's condition. Risks, benefits, and alternatives have been discussed and questions answered. Patient agrees to proceed with procedure.
[2023-10-22] MEDS: ACETAMINOPHEN 500 MG TABLET 1000 MG PO (07:23)
[2023-10-22] MEDS: KETOROLAC 15 MG/ML VIAL (*BKC) IV PUSH (07:33)
--- NOTE | 2023-10-22 07:38 | P.PNAN_ITS ---
Anes - Initial Pre Proc Eval Procedure: Operation Date: 10/22/23 08:15 Proposed Procedures p Laparoscopic Left Ovarian Cystectomy - Tommy Puga MD Date/Time: 10/22/23 07:38 Surgeon: Tommy Puga MD Pre Op Diagnosis: Left Complex Ovarian Cyst Patient Data Age: 43 Gender: F Height: 1.7 m Weight: 68.1 kg Last Vital Signs Temp 37.2 C 10/22/23 06:42 Pulse 79 10/22/23 06:42 Resp 16 10/22/23 06:42 BP 101/60 10/22/23 06:42 Pulse Ox 100 10/22/23 06:42 O2 Del Method Room Air 10/22/23 06:42 Allergies Allergy/AdvReac Type Severity Reaction Status Date / Time gluten Allergy CELIAC Verified 10/22/23 06:45 DISEASE Home Medications Medication Instructions Recorded Confirmed Type spironolactone 50 mg tablet 100 mg PO DAILY 09/03/22 10/22/23 History alprazolam 0.5 mg tablet 0.5 mg PO BID PRN Anxiety 12/01/22 10/22/23 History linaclotide 72 mcg capsule 72 mcg PO PRN PRN Abdominal 12/01/22 10/22/23 History (Linzess) Discomfort pseudoephedrine HCl 30 mg tablet 30 mg PO HS PRN Congestion 12/01/22 10/22/23 History (Sudafed) hydrocodone 5 mg-acetaminophen 325 1 tablet PO Q4H PRN pain #20 tabs 10/22/23 Rx mg tablet Patient hx anesthesia problems: none Family hx anesthesia problems: none Results Review: All pre-operative results and documents have been reviewed as part of the pre- operative evaluation. [facility] Past Medical History Medical History Celiac disease Surgical History Surgical History H/O laparoscopy H/O umbilical hernia repair 12/15/22 0.5 cm Umbilical hernia repair H/O: hysterectomy Hx of tonsillectomy S/P breast augmentation S/P Family History Family History Father Lung cancer Other Cerebrovascular accident Cancer Social History Social History Smoking status: Never smoker Alcohol intake: current Drinks per week: 3 Alcohol use details: 4/MONTH Substance use: never Substance use type: does not use Living arrangements: with family Additional living arrangements comments: CHILDREN Spiritual care concerns: No Anes - Eval Final PreProcedure Day of Procedure 10/22/23 07:38 Patient weight: normal Heart: regular rate and rhythm Lungs: clear to auscultation Airway: Mallampati scale class II Neurological: alert and oriented Last oral intake: >/= 8 hours ASA classification: II Emergent: no Anesthetic plan: proceed Anesthesia type and monitoring: general ETT and standard monitoring Results Review: All pre-operative results and documents have been reviewed as part of the pre- operative evaluation. Informed Consent: The patient's anesthetic plan and its attendant risks and benefits were discussed with the patient/family/POA. Questions were solicited and answers provided to the satisfaction of the patient/family/POA.
--- NOTE | 2023-10-22 08:38 | P.OP_ITS ---
Procedure Note - Detailed Date of Procedure 10/22/23 Pre-op Diagnosis Left Complex Ovarian Cyst Post-op Diagnosis Other (Left ovarian cyst/ endometriosis/pelvic adhesions) Procedure Performed laparoscopic destruction of left ovarian cyst / destruction of endometriosis/ lysis of adhesions Surgeon Tommy Puga MD Anesthesia General Indications this is a 43-year-old female status post hysterectomy right salpingo- oophorectomy admitted for laparoscopy secondary to pain and ovarian cyst Findings uterus and right ovary and tube absent. Left ovary contained a cyst simple cyst which was opened in linear fashion. Multiple adhesions were surrounding this ovarian cyst. Small areas of endometriosis were seen on the uterosacral ligaments and on the vaginal cuff. A normal-appearing appendix and a normal- appearing gallbladder and liver looked edge were seen Description of Procedure the patient was prepped and draped in the normal sterile fashion placed in the dorsal lithotomy position. Under excellent general endotracheal anesthesia the bladder was emptied of clear urine. The weighted speculum was removed and a sponge stick placed in the vagina for manipulation of the vagina. Gloves were changed. An infraumbilical incision made in the Veress needle passed in the abdomen. Abdomen filled with CO2 gas [id number]. The 5mm trocar advanced under direct visualization assuring no injury. Patient placed in Trendelenburg and a suprapubic incision made. The 5mm trocar advanced under direct visualization assuring no injury. [id number] of serosanguineous fluid in the cul-de-sac and this was suction and removed. The right ovary tube and uterus were surgically absent. Small areas of endometriosis were seen along uterosacral ligament bilaterally and the vaginal cuff. These were point cauterized at 35 w per 2nd with monopolar cautery. Multiple adhesions were seen to the left of the ovary contained a fairly simple follicular appearing cyst in this was opened in linear fashion and drained. However the multiple adhesions that were seen from the colon and the appendices upload the epiploica were sharply dissected off this area and relieved the colon. Irrigation was undertaken until clear after. Photo documentation was taken of the entire pelvis. The instruments removed withdrawn and the gas removed from the abdomen. The incisions closed with 4 Monocryl and glue and the instruments removed from the vagina. The patient went to recovery in satisfactory condition. All sponge, needle, instrument counts were correct. There were no immediate complications noted Estimated Blood Loss 5 Drains No Packing No Pathology None sent Complications No immediate complications Condition Stable Disposition PACU
[2023-10-22] MEDS: LACTATED RINGERS 1,000 ML 30 ML IV CONT (08:46)
== END 2023-10-22 10:29 | disposition home or self-care (01) ==
PROVIDERS: Visit Provider Obstetrics & Gynecology
PROC: (CPT 49320; principal; 2023-10-22 08:15)
DX: N83.292 Other ovarian cyst, left side (principal); K90.0 Celiac disease; Z79.891 Long term (current) use of opiate analgesic; Z90.721 Acquired absence of ovaries, unilateral; Z80.1 Family history of malignant neoplasm of trachea, bronchus and lung; Z82.49 Family history of ischemic heart disease and other diseases of the circulatory system
CPT/HCPCS: 58662; 36415; 86850; 86900; 86901; A9270; J1100; J1885; J2250; J2405; J2704; J3010; J7120